=== PATIENT | female | born 1965 | race Caucasian/White ===

== ENCOUNTER 2022-03-09 09:31 | Emergency (ER) | payer OTHER ==
[~2022-03-09] VITALS: Ht 167.6 cm; Wt 113.6 kg
[~2022-03-09 09:31] MED LIST: ACET-2 PO; ASPI-1071 PO; ATOR40TA PO; CYCL-1 PO; GABA-534 PO; LISI1TAB53 PO; LOP25T PO; NOVRI SQ; PIOG15TA8 PO; SITA1TBM7 PO; ZOLP10TA PO
--- NOTE | 2022-03-09 09:44 | NUR ---
RON OLIVEIRA IN TRIAGE.
[2022-03-09] MEDS ORDERED: ondansetron 4mg rapidly disintigrating tab PO ONE (09:45)
[2022-03-09 10:41] LABS: BASOPHILS # (AUTO) 0.1 X10'3 (0-0.2); BASOPHILS % (AUTO) 1.2 % (0-1); EOSINOPHILS # (AUTO) 0.3 X10'3 (0-0.9); EOSINOPHILS % (AUTO) 4.3 % (0-6); HEMATOCRIT 42.1 % (35.0-45.0); HEMOGLOBIN 14.2 g/dl (12.0-16.0); LYMPHOCYTES # (AUTO) 1.7 X10'3 (1.1-4.8); LYMPHOCYTES % (AUTO) 27.3 % (21-51); MEAN CORPUSCULAR HGB CONC 33.7 g/dL (33.0-36.5); MEAN PLATELET VOLUME 9.1 FL (7.4-10.4); MONOCYTES # (AUTO) 0.4 X10'3 (0-0.9); MONOCYTES % (AUTO) 7.2 % (2-12); NEUTROPHILS # (AUTO) 3.7 X10'3 (1.8-7.7); PLATELET COUNT 209 X10'3 (140-440); RED BLOOD COUNT 5.07 X10'6 (4.20-5.60); RED CELL DISTRIBUTION WIDTH 13.7 % (11.5-14.5); WHITE BLOOD COUNT 6.1 X10'3 (4.5-11.0)
[2022-03-09 11:06] LABS: ALANINE AMINOTRANSFERASE 19 U/L (12-78); ALBUMIN 2.4 G/DL (3.4-5.0); ALBUMIN/GLOBULIN RATIO 0.5 (1.1-1.5); ALKALINE PHOSPHATASE 136 IU/L (46-116); ANION GAP 6 (8-16); ASPARTATE AMINO TRANSFERASE 16 U/L (10-37); BILIRUBIN,TOTAL 0.4 MG/DL (0.1-1.0); BLOOD UREA NITROGEN 23 MG/DL (7-18); BUN/CREATININE RATIO 23.5 (6.6-38.0); CHLORIDE 101 MMOL/L (99-107); CREATININE 0.98 MG/DL (0.40-0.90); GLUCOSE 367 MG/DL (70-104); LIPASE 109 U/L (73-393); POTASSIUM 4.3 MMOL/L (3.5-5.1); SODIUM 136 MMOL/L (135-145); TOTAL CARBON DIOXIDE 28.8 MMOL/L (24-32); eGFR 58 ML/MIN
[2022-03-09 11:11] LABS: CALCIUM 8.9 MG/DL (8.5-10.1)
[2022-03-09] MEDS ORDERED: HYDROcodone/acetaminophen 5mg/325mg tablet PO ONE (11:25)
[2022-03-09 12:27] LABS: CLARITY,URINE SLIGHTLY CLOUDY (Clear); COLOR,URINE YELLOW (Yellow); GLUCOSE, URINE 500 mg/dl (Neg); KETONES,URINE TRACE mg/dl (Neg); LEUKOCYTE ESTERASE ,URINE NEGATIVE (Neg); NITRITES, URINE NEGATIVE (Neg); OCCULT BLOOD,URINE SMALL (Neg); PROTEIN,URINE >=300 mg/dl (Neg); UROBILINOGEN,URINE 0.2 E.U/dL (0.2-1.0)
[2022-03-09 12:30] LABS: UA COLLECTION TYPE NON-SPECIFIED
[2022-03-09] MEDS ORDERED: normal saline 1000ML IV soln IVB ONE (12:35)
[2022-03-09 12:36] LABS: BACTERIA,URINE 1+ /HPF (Neg); MUCUS STRANDS MODERATE /LPF (Neg); TRANSITIONAL EPI CELLS,URINE FEW /HPF
[2022-03-09 12:37] LABS: AMORPHOUS URATES 1+; HYALINE CASTS >30 /LPF (NEGATIVE)
[2022-03-09 12:39] LABS: COARSE GRANULAR CAST 0-3 /LPF (NEGATIVE); RENAL CELLS, URINE FEW /HPF; SQUAMOUS EPITHELIAL CELL,UR MODERATE /LPF (FEW)
[2022-03-09] MEDS ORDERED: cephalexin 500mg capsule PO ONE (13:00)
[2022-03-09] MEDS ORDERED: normal saline 1000ml 1,000 ML IV ONE (14:00)
[2022-03-09] MEDS ORDERED: PIOG30TA71 PO (14:47)
[2022-03-09] MEDS ORDERED: SITA1TBM7 PO (14:47)
[2022-03-09] MEDS ORDERED: HYDR-3965 PO (15:06)
[2022-03-09] MEDS ORDERED: CEPH500C82 PO (15:13)
[2022-03-09 15:19] VITALS: BP 155/82
== END 2022-03-09 15:21 | disposition home or self-care (01) ==
LOC: ER 09:32
DX: N39.0 Urinary tract infection, site not specified (principal); Z76.0 Encounter for issue of repeat prescription; E11.65 Type 2 diabetes mellitus with hyperglycemia; G89.29 Other chronic pain; M54.50 Low back pain, unspecified
CPT/HCPCS: 36415; 71045; 80053; 81001; 82948; 83690; 84484; 85025; 87088; 93005; 96360; 99284; J7030; 99285

== ENCOUNTER 2022-06-03 15:35 | Emergency (ER) | payer MEDICARE, MEDICAID ==
[~2022-06-03] VITALS: Ht 170.2 cm; Wt 109.1 kg
[~2022-06-03 15:35] MED LIST changes: -ACET-2 PO; -ASPI-1071 PO; +ASPI-1397 PO; +BENZ-38 PO; +CETI10TA14 PO; +DEXT30SU5 PO; +DULO40CA2 PO; +HYDR-3965 PO; +OSC500T PO
[2022-06-03] MEDS ORDERED: LIDOCAINE 2%/EPI 1:100,000 inj. Multi-dose 20 ML VIAL SQ ONE (16:10)
[2022-06-03] MEDS ORDERED: HYDROcodone/acetaminophen 5mg/325mg tablet PO ONE (16:50)
[2022-06-03] MEDS ORDERED: ibuprofen tablet 400 MG TABLET PO ONE (16:50)
[2022-06-03 18:25] VITALS: BP 120/82
[2022-06-03 18:28] LABS: BASOPHILS % (AUTO) 0.3 % (0-1); EOSINOPHILS # (AUTO) 0.1 X10'3 (0-0.9); EOSINOPHILS % (AUTO) 1.5 % (0-6); HEMATOCRIT 30.8 % (35.0-45.0); LYMPHOCYTES # (AUTO) 1.6 X10'3 (1.1-4.8); LYMPHOCYTES % (AUTO) 18.9 % (21-51); MEAN CORPUSCULAR HEMOGLOBIN 27.7 PG (27.0-31.0); MEAN CORPUSCULAR HGB CONC 32.7 g/dL (33.0-36.5); MEAN CORPUSCULAR VOLUME 84.7 FL (78-98); MEAN PLATELET VOLUME 7.2 FL (7.4-10.4); MONOCYTES # (AUTO) 0.8 X10'3 (0-0.9); MONOCYTES % (AUTO) 9.9 % (2-12); NEUTROPHILS # (AUTO) 5.8 X10'3 (1.8-7.7); NEUTROPHILS % (AUTO) 69.4 % (42-75); PLATELET COUNT 304 X10'3 (140-440); RED BLOOD COUNT 3.63 X10'6 (4.20-5.60); RED CELL DISTRIBUTION WIDTH 14.6 % (11.5-14.5); WHITE BLOOD COUNT 8.4 X10'3 (4.5-11.0)
[2022-06-03 18:42] LABS: ALANINE AMINOTRANSFERASE 10 U/L (12-78); ALBUMIN 2.4 G/DL (3.4-5.0); ALBUMIN/GLOBULIN RATIO 0.5 (1.1-1.5); ALKALINE PHOSPHATASE 148 IU/L (46-116); ANION GAP 8 (8-16); ASPARTATE AMINO TRANSFERASE 14 U/L (10-37); BILIRUBIN,TOTAL 0.4 MG/DL (0.1-1.0); BLOOD UREA NITROGEN 12 MG/DL (7-18); BUN/CREATININE RATIO 15.2 (10.0-20.0); CALCIUM 8.4 MG/DL (8.5-10.1); CHLORIDE 103 MMOL/L (99-107); CREATININE 0.79 MG/DL (0.40-0.90); GLUCOSE 164 MG/DL (70-104); POTASSIUM 4.1 MMOL/L (3.5-5.1); SODIUM 139 MMOL/L (135-145); TOTAL CARBON DIOXIDE 28.4 MMOL/L (24-32); TOTAL PROTEIN 6.8 G/DL (6.4-8.2); eGFR 74 ML/MIN
== END 2022-06-03 20:02 | disposition home or self-care (01) ==
LOC: ER 15:35
DX: S01.111A Laceration without foreign body of right eyelid and periocular area, initial encounter (principal); I11.0 Hypertensive heart disease with heart failure; J44.9 Chronic obstructive pulmonary disease, unspecified; E11.9 Type 2 diabetes mellitus without complications; G89.29 Other chronic pain; M54.9 Dorsalgia, unspecified; Z98.890 Other specified postprocedural states; Z79.82 Long term (current) use of aspirin; Z79.899 Other long term (current) drug therapy; Z79.2 Long term (current) use of antibiotics; Z79.1 Long term (current) use of non-steroidal anti-inflammatories (NSAID); W18.39XA Other fall on same level, initial encounter; Y93.89 Activity, other specified; Y92.89 Other specified places as the place of occurrence of the external cause; Y99.8 Other external cause status
CPT/HCPCS: 12011; 36415; 70450; 73030; 73560; 73620; 80053; 85025; 99285; J7030; L4360; A6449